=== PATIENT | male | born 1990 | race Caucasian/White ===

== ENCOUNTER 2017-02-19 15:33 | Outpatient (CLI) ==
[2014-04-02 19:18] VITALS: BMI 29.0
[2017-02-19 15:55] LABS: BASOPHILS % (AUTO) 0.4 % (0.0-3.0); EOSINOPHILS # (AUTO) 0.1 K/ul (0.0-0.7); HEMATOCRIT 48.9 % (42.0-52.0); HEMOGLOBIN 16.7 g/dl (14.0-18.0); IMMATURE GRANULOCYTE % (AUTO) 0.2 % (0.0-5.0); LYMPHOCYTES # (AUTO) 1.7 K/uL (0.60-3.4); MEAN CORPUSCULAR HEMOGLOBIN 28.4 pg (27.0-31.0); MEAN CORPUSCULAR HGB CONC 34.2 (31.8-35.4); MONOCYTES # (AUTO) 0.6 K/uL (0.4-2.0); MONOCYTES % (AUTO) 6.3 (0-10); NEUTROPHILS # (AUTO) 7.3 K/ul (2.0-6.9); NEUTROPHILS % (AUTO) 75.1; PLATELET COUNT 261 10^3/uL (140-440); RED BLOOD COUNT 5.89 10^6/ul (4.70-6.10)
[2017-02-19 16:29] LABS: ALBUMIN 4.2 g/dL (3.4-5.0); ALBUMIN/GLOBULIN RATIO 1.27; ANION GAP 16.7; BILIRUBIN,TOTAL 0.36 mg/dL (0.00-1.20); BUN/CREATININE RATIO 13.54; CALCIUM 9.5 mg/dL (8.2-10.2); CREATININE 0.96 mg/dL (0.60-1.10); POTASSIUM 3.7 mmol/L (3.5-5.1); TOTAL PROTEIN 7.5 g/dL (6.4-8.2)
== END 2017-02-19 15:34 | disposition home or self-care (01) ==
LOC: LAB 15:33
PROVIDERS: ATTEND Physician Assistant
DX: R19.5 Other fecal abnormalities (principal); R07.9 Chest pain, unspecified
CPT/HCPCS: 36415; 80053; 85025; 93005; 93010